=== PATIENT | male | born 1980 | race Hispanic/Latino ===

== ENCOUNTER 2017-04-27 16:00 | Emergency (ER) | payer BC ==
[~2017-04-27] VITALS: Ht 177.8 cm; Wt 106.8 kg
[2017-04-27 17:14] LABS: HEMATOCRIT 41.8 % (38.0-50.0); HEMOGLOBIN 14.2 G/DL (12.5-16.6); MCH 28.2 PG (29.0-34.0); MCV 82.9 FL (86-99); PLATELET COUNT 225 K/uL (156-360); RBC DIS.WIDTH-CV 12.9 % (11.8-14.6); RED BLOOD COUNT 5.04 M/uL (4.00-5.50)
[2017-04-27 17:18] VITALS: BP 157/94
[2017-04-27 17:25] LABS: ALBUMIN 4.2 g/dL (3.2-4.8); CHLORIDE 106 mEq/L (99-109); POTASSIUM 3.7 mEq/L (3.7-5.4); SODIUM 138 mEq/L (136-147)
[2017-04-27 17:27] LABS: GLUCOSE 103 mg/dL (70-99); TOTAL PROTEIN 6.8 g/dL (6.4-8.3)
[2017-04-27 17:29] LABS: TOTAL BILIRUBIN 0.5 mg/dL (0.0-1.0)
[2017-04-27 17:31] LABS: ALKALINE PHOSPHATASE 55 IU/L (3-129); CREATININE 1.2 mg/dL (0.6-1.3)
[2017-04-27 17:32] LABS: UREA NITROGEN (BUN) 16 mg/dL (9-23)
[2017-04-27 17:33] LABS: AST (GOT) 27 IU/L (2-34)
[2017-04-27 17:34] LABS: ALT (GPT) 26 IU/L (3-49); LIPASE 12 U/L (1.0-51.0)
[2017-04-27 17:39] LABS: GFR ESTIMATE (CALCULATED) > 59 mL/min/ (58.99-99999)
[2017-04-27] MEDS ORDERED: MOTRIN600 MG PO (18:05)
[2017-04-27] MEDS ORDERED: FLEXERIL10 MG PO (18:05)
== END 2017-04-27 18:15 | disposition home or self-care (01) ==
LOC: TRA 16:00 → EME 16:00 → TRA 18:15
PROVIDERS: Physician Assistant
DX: S22.039A Unspecified fracture of third thoracic vertebra, initial encounter for closed fracture (principal); S22.049A Unspecified fracture of fourth thoracic vertebra, initial encounter for closed fracture; S13.4XXA Sprain of ligaments of cervical spine, initial encounter; S80.12XA Contusion of left lower leg, initial encounter; S00.91XA Abrasion of unspecified part of head, initial encounter; S30.811A Abrasion of abdominal wall, initial encounter; W19.XXXA Unspecified fall, initial encounter; Y93.23 Activity, snow (alpine) (downhill) skiing, snowboarding, sledding, tobogganing and snow tubing; Z87.891 Personal history of nicotine dependence
CPT/HCPCS: 70450; 72125; 72128; 73552; 80053; 83690; 85027; 99281; 99284; J3010